=== PATIENT | male | born 1960 | race Caucasian/White ===

== ENCOUNTER 2017-09-07 10:38 | Emergency (ER) | payer OTHER ==
[~2017-09-07] VITALS: Ht 182.9 cm; Wt 94.7 kg
[2017-09-07 10:43] VITALS: BP 162/80; PULSE 100; RESP 18; TEMP 98.1; O2SAT 98
[2017-09-07] MEDS ORDERED: AMLO10TA2 PO (11:03)
[2017-09-07] MEDS ORDERED: METO1TAB9 PO (11:03)
[2017-09-07] MEDS ORDERED: APIX5TAB PO (11:03)
[2017-09-07] MEDS ORDERED: SIMV20TA PO (11:03)
[2017-09-07] MEDS ORDERED: BENA10TA PO (11:03)
--- NOTE | 2017-09-07 11:03 | PD ---
HPI Chief Complaint: Head Injury Time Seen by Provider: 10:56 Travel History International Travel<30 days: No Contact w/Intl Traveler<30days: No Traveled to known affect area: No History of Present Illness HPI This is a 57-year-old male who was at work when a pallet dropped on his head earlier this morning. He had blood coming from his head so he went to an urgent care. He denies any loss of consciousness and had no vomiting. He feels normal except for the pain coming from the top of his head, mild, constant. At the urgent care they repaired his laceration with sutures but referred him to the emergency department for CT scan. He takes Eliquis for atrial fibrillation. [facility] Past Medical History Hx Anticoagulant Therapy: Yes (ELIQUIS) Atrial Fibrillation: Yes Cardiovascular Problems: Yes (MVP) Diminished Hearing: No Hypertension: Yes Tetanus Vaccination: Unknown Influenza Vaccination: Yes ?: Not Past Surgical History Abdominal Surgery: Yes (hernia, appy) Social History Alcohol Use: No Tobacco Use: No Substance Use: No Allergies-Medications (Allergen,Severity, Reaction): Coded Allergies: No Known Allergies (Unverified , 09/07/17) Reported Meds & Prescriptions Reported Meds & Active Scripts Active Reported Amlodipine (Amlodipine Besylate) 10 Mg Tab 10 Mg PO DAILY Benazepril (Benazepril HCl) 10 Mg Tab 10 Mg PO DAILY Metoprolol Succinate ER 24 HR (Metoprolol Succinate) 50 Mg Tab 50 Mg PO DAILY Simvastatin 20 Mg Tab 20 Mg PO DAILY Eliquis (Apixaban) 5 Mg Tab 10 Mg PO BID Review of Systems Except as stated in HPI: all other systems reviewed are Neg Physical Exam Narrative GENERAL:Well appearing, no acute distress SKIN: 4 cm laceration top of head linear, [address] HEAD: Atraumatic. Normocephalic. EYES: Pupils equal and round. No injection or drainage. ENT: Moist mucous membranes NECK: Trachea midline. No cervical spine tenderness CARDIOVASCULAR: Regular rate and rhythm. No murmur appreciated. RESPIRATORY: Clear to auscultation. Breath sounds equal bilaterally. GASTROINTESTINAL: Abdomen soft, non-tender, nondistended. MUSCULOSKELETAL: No obvious deformities. NEUROLOGICAL: Awake and alert. No obvious cranial nerve deficits. Moving all extremities. PSYCHIATRIC: Appropriate mood and affect; insight and judgment normal. Data Data Last Documented VS Vital Signs Date Time Temp Pulse Resp B/P (MAP) Pulse Ox O2 Delivery O2 Flow Rate FiO2 09/07/17 10:50 Room Air 09/07/17 10:43 98.1 100 18 162/80 (107) [address] Brain W/O Iv Contrast(Rout) (09/07/17 ) [facility] Medical Decision Making Medical Screen Exam Complete: Yes Emergency Medical Condition: Yes Interpretation(s) Afebrile, mild tachycardia, hypertensive CT of the head is reassuring Differential Diagnosis Intracranial hemorrhage, concussion, laceration, contusion Narrative Course This is a 57-year-old male who presents to the emergency department having had a pallet fall on his head. He has a laceration on the top of his head. CT is negative for intracranial hemorrhage. Patient will be discharged home. Diagnosis Primary Impression: Contusion Qualified Codes: S00.03XA - Contusion of scalp, initial encounter Patient Instructions: General Instructions Additional Instructions: Return to the emergency department if you develop trouble walking or talking, vomiting, numbness, weakness, or severe headache. Rest your body - Make sure to get plenty of sleep. When you are awake, you should avoid heavy exercise or too much physical activity. Rest your brain - Avoid doing activities that need concentration or a lot of attention. Not drink alcohol for 2 days after the injury Take a pain-relieving medicine, if you have a headache Follow up with your primary care physician in one week if you are not back to your normal self. Med/Other Pt SpecificInfo: No Change to Meds Disposition: 01 DISCHARGE HOME Condition: Stable Toyin Marinelli MD September 07, 2017 11:03
--- NOTE | 2017-09-07 11:51 | RADRPT ---
EXAM DATE/TIME: 09/07/2017 11:13 [place] COMPARISON: No previous studies available for comparison. INDICATIONS : Trauma. Pallet dropped on top of head. Laceration. RADIATION DOSE: 57.44 CTDIvol (mGy) MEDICAL HISTORY : Cardiovascular disease. Hypertension. Anticoagulant therapy. SURGICAL HISTORY : Appendectomy. Hernia repair. ENCOUNTER: Initial ACUITY: 1 day PAIN SCALE: 5/10 LOCATION: cranial TECHNIQUE: Multiple contiguous axial images were obtained of the head. Using automated exposure control and adj ustment of the mA and/or kV according to patient size, radiation dose was kept as low as reasonably a chievable to obtain optimal diagnostic quality images. DICOM format image data is available electro nically for review and comparison. FINDINGS: CEREBRUM: The ventricles are normal. No evidence of midline shift, mass lesion, hemorrhage or acute infarction . No extra-axial fluid collections are seen. POSTERIOR FOSSA: The cerebellum and brainstem demonstrate no acute finding. The 4th ventricle is midline. The cerebe llopontine angle is unremarkable. EXTRACRANIAL: Visualized sinuses are clear. There is mild left scalp soft tissue swelling at the high convexity. SKULL: The calvaria is intact. No evidence of skull fracture. CONCLUSION: 1. Mild soft tissue swelling of the left scalp at the high convexity. No fracture is identified. 2. No acute intracranial abnormality is identified Jaciel Moya MD on September 07, 2017 at 11:47 Board Certified Radiologist. This report was verified electronically.
[2017-09-07] MEDS ORDERED: GELATIN 12 MM/7 MM FOAM TOPICAL ONE (12:15)
== END 2017-09-07 12:32 | disposition home or self-care (01) ==
LOC: PHED 10:38
DX: S01.01XA Laceration without foreign body of scalp, initial encounter (principal); S00.03XA Contusion of scalp, initial encounter; R00.0 Tachycardia, unspecified; I48.91 Unspecified atrial fibrillation; I10 Essential (primary) hypertension; W22.8XXA Striking against or struck by other objects, initial encounter; Z79.899 Other long term (current) drug therapy
CPT/HCPCS: 70450